=== PATIENT | male | born 1990 | race Two or more races ===

== ENCOUNTER 2016-08-30 17:51 | Emergency (ER) | payer OTHER ==
[~2016-08-30] VITALS: Ht 182.9 cm; Wt 89.9 kg
[~2016-08-30 17:51] MED LIST: NOHOMEMEDS; PRILOSEC OTC20 MG PO; ZANTAC150 MG PO
[2016-08-30 20:18] LABS: HEMATOCRIT 46.6 % (38.0-50.0); MCH 27.3 PG (29.0-34.0); MCV 82.5 FL (86-99); MEAN PLAT.VOLUME 9.1 uM^3 (9.0-12.4); PLATELET COUNT 240 K/uL (156-360); RBC DIS.WIDTH-CV 13.4 % (11.8-14.6); RBC DIS.WIDTH-SD 40.4 % (39-53); RED BLOOD COUNT 5.65 M/uL (4.00-5.50); WHITE BLOOD COUNT 10.1 K/uL (4.1-10.2)
[2016-08-30 20:26] LABS: CHLORIDE 103 mEq/L (99-109); POTASSIUM 3.5 mEq/L (3.7-5.4); SODIUM 138 mEq/L (136-147)
[2016-08-30 20:27] LABS: AMYLASE 42 IU/L (1-118)
[2016-08-30 20:28] LABS: GLUCOSE 88 mg/dL (70-99)
[2016-08-30 20:29] LABS: ANION GAP 12 MEQ/L (2-14)
[2016-08-30 20:30] LABS: TOTAL BILIRUBIN 0.8 mg/dL (0.0-1.0)
[2016-08-30 20:32] LABS: ALKALINE PHOSPHATASE 60 IU/L (3-129); GFR ESTIMATE (CALCULATED) > 59 mL/min/
[2016-08-30 20:33] LABS: UREA NITROGEN (BUN) 10 mg/dL (9-23)
[2016-08-30 20:35] LABS: LIPASE 8 U/L (1.0-51.0)
[2016-08-30] MEDS ORDERED: TRAMADOL HCL50 MG PO (21:31)
[2016-08-30] MEDS ORDERED: ZOFRAN ODT4 MG PO (21:31)
[2016-08-30 21:40] VITALS: BP 153/89
== END 2016-08-30 21:41 | disposition home or self-care (01) ==
LOC: EME 17:51 → RME 17:51
PROVIDERS: Physician Assistant
DX: R11.2 Nausea with vomiting, unspecified (principal); R19.7 Diarrhea, unspecified; K21.9 Gastro-esophageal reflux disease without esophagitis; J45.909 Unspecified asthma, uncomplicated; F17.200 Nicotine dependence, unspecified, uncomplicated
CPT/HCPCS: 71020; 80053; 82150; 83690; 85027; 99281; 99283